=== PATIENT | female | born 1985 | race African-American/Black ===

== ENCOUNTER 2017-05-16 19:10 | Emergency (ER) | payer OTHER ==
[2017-05-16 19:19] VITALS: BP 133/81; BMI 41.8
--- NOTE | 2017-05-16 20:55 | DR.GENAD ---
HPI - PCP Primary Care Physician: nolan - HPI Comment HPI Comment: PATIENT HAVE INDWELLING BC IMPLANT IN THE AREA OF SWELLING. ARM WARM BUT NO FEVER. SWELLING INCREASING AND PAIN IS ALSO INCREASING. - Complaint/Symptoms Chief Complaint Doctors Comments: SWELLING, PAIN AND REDNESS RIGHT INNER LEFT ARM TIMES 2 TO 3 DAYS. Chief Complaint:: left upper inside arm with edema, redness, tightness, warm to touch. started on [id number]. same site where she has control implant done 5 months ago. - Nurses notes reviewed Nurses Notes Review: Yes - Source History Provided: Patient - Mode of Arrival Mode of Arrival: Ambulatory - Timing Onset of Chief Complaint: 05/14/17 Came on: Suddenly - Duration Duration: Constant Duration: Days - Severity Severity: Moderate PMH - PMH Past Medical History: Yes Past Medical History: Hypertension Past Surgical History: No - Family History History of Family Medical Conditions: No - Social History Does patient currently use any type of tobacco product: No Have you used tobacco products in the last 12 months: No Type of Tobacco Use: None Alcohol Use: None Do you use any recreational Drugs:: No Lives With: Family Lives Where: Home - infectious screening Have you traveled outside the country in the last 6 months?: No Isolation: Standard ROS - Review of Systems Constitutional: No Symptoms Reported. negative: Chills, Fever Eyes: No Symptoms Reported. negative: Eye Pain, Discharge ENTM: No Symptoms Reported. negative: Ear Pain, Nose Discharge, Nose Congestion , Throat Pain Respiratoy: No Symptoms Reported. negative: Productive Cough, Non-Productive Cough, Short of Breath, Wheezing Cardiovascular: No Symptoms Reported (ARM.), Edema. negative: Chest Pain Gastrointestinal/Abdominal: No Symptoms Reported Genitourinary: No Symptoms Reported Neurological: No Symptoms Reported Musculoskeletal: Left, Shoulder Integumentary: Change in Color Hematologic/Lymphatic: No Symptoms Reported Endocrine: No Symptoms Reported All Other Systems: Reviewed and Negative PE - Vital Signs Vitals: Temperature 98.2 F Pulse Rate 80 Respiratory Rate 16 Blood Pressure 133/81 O2 Sat by Pulse Oximetry 100 - General Limitations: No Limitations General Appearance: Alert - Head Head Exam: Normal Inspection - Eyes Eye exam: Normal Appearance - ENT ENT Exam: Normal External Ear Exam External Ear Exam: Normal External Inspection TM/Canal Exam: Bilateral Normal Nose Exam: Normal Nose Exam Mouth Exam: Normal Inspection Throat Exam: Normal Inspection - Neck Neck Exam: Trachea Midline - Chest Chest Inspection: Symmetric Chest Wall Rise - Respiratory Respiratory Exam: Normal Lung Sounds Bilat Respiratory Exam: Bilateral Clear to Auscultation - Cardiovascular Cardiovascular Exam: Regular Rate, Normal Rhythm, Normal Heart Sounds - Abdominal Exam Abdominal Exam: Normal Bowel Sounds, Soft. negative: Tenderness - Extremities Extremities Exam: Tenderness - Back Back Exam: Normal Inspection - Neurologic Neurological Exam: Alert, Oriented X3 - Psychiatric Psychiatric Exam: Normal Affect, Normal Mood - Skin Skin Exam: Erythema MDM - Additional Information Additional Information Obtained From: Family - Differential Diagnosis Differential Diagnosis: CELLULITIS LT ARM. Course - Treatment Treatment: SEE ORDERS. IV MED FOR PAIN IN ED. CT WITH CONTRAST DONE. NO ABSCESS. - Reevaluation 1st: Improved - Education/Counseling Education/Counseling: Patient, Family, Education Educated On: Treatment, Diagnosis, Needs for Follow Up ROR - Labs Reviewed Laboratory Results Reviewed?: Yes Result Diagrams: 05/16/17 21:25 05/16/17 21:25 Laboratory: WBC 6.2 X10^3/uL (3.6-10.0) 05/16/17 21:25 RBC 5.28 X10^6/uL (3.5-5.4) 05/16/17 21:25 Hgb 11.9 g/dL (12.0-16.0) L 05/16/17 21:25 Hct 37.0 % (36.0-47.0) 05/16/17 21:25 MCV 70.1 fL (80.0-100.0) L 05/16/17 21:25 MCH 22.4 pg (27.0-34.0) L 05/16/17 21:25 MCHC 32.0 g/dL (33.0-35.0) L 05/16/17 21:25 RDW 19.1 % (11.6-16.5) H 05/16/17:25 Plt Count 205 X10^3/uL (150.0-450.0) 05/16/17 21:25 Plt Count Comment Adequate (ADEQUATE) 05/16/17 21:25 MPV 8.9 fL (7.4-11.0) 05/16/17 21:25 Neut % 56.9 % (42.0-75.0) 05/16/17 21:25 Lymph % 34.2 % (21.0-51.0) 05/16/17 21:25 Grundy % 5.7 % (0.0-13.0) 05/16/17 21:25 Eos % 2.6 % (0.9-2.9) 05/16/17 21:25 Baso % 0.6 % (0.2-1.0) 05/16/17 21:25 Neut # 3.5 x10^3/uL (2.2-4.8) 05/16/17 21:25 Lymph # 2.1 X10^3/uL (1.3-2.9) 05/16/17 21:25 Grundy # 0.4 x10^3/uL (0.3-0.8) 05/16/17 21:25 Eos # 0.2 x10^3/uL (0.0-0.2) 05/16/17 21:25 Baso # 0.0 X10^3/uL (0.0-0.1) 05/16/17 21:25 Absolute Nucleated RBC 0.1 /100WBC 05/16/17 21:25 Plt Morphology Comment Normal (NORMAL) 05/16/17 21:25 RBC Morphology Abnormal (NORMAL) A 05/16/17 21:25 Hypochromasia 1+ A 05/16/17 21:25 Anisocytosis 1+ A 05/16/17 21:25 Microcytosis 1+ A 05/16/17 21:25 Sodium 140 mmol/L (136-145) 05/16/17 21:25 Corrected Sodium TNP 05/16/17 21:25 Potassium 3.8 mmol/L (3.5-5.1) 05/16/17 21:25 Chloride 106 mmol/L (98-107) 05/16/17 21:25 Carbon Dioxide 25.6 mmol/L (21-32) 05/16/17 21:25 BUN 14 mg/dL (7-18) 05/16/17 21:25 Creatinine 0.89 mg/dL (0.55-1.02) 05/16/17 21:25 Est GFR (MDRD) Af Amer > 60 (>60) 05/16/17 21:25 Est GFR (MDRD) Non-Af > 60 (>60) 05/16/17 21:25 Glucose 92 mg/dL (65-99) 05/16/17 21:25 Calcium 8.6 mg/dL (8.5-10.1) 05/16/17 21:25 Corrected Calcium TNP 05/16/17 21:25 Total Bilirubin 0.30 mg/dL (0.2-1.0) 05/16/17 21:25 AST 18 Units/L (15-37) 05/16/17 21:25 ALT 23 Units/L (12-78) 05/16/17 21:25 Alkaline Phosphatase 65 Units/L (46-116) 05/16/17 21:25 C-Reactive Protein 29.70 mg/L (0-3.0) H 05/16/17 21:25 Total Protein 7.6 g/dL (6.4-8.2) 05/16/17 21:25 Albumin 3.5 g/dL (3.4-5.0) 05/16/17 21:25 Globulin 4.1 g/dL (2.5-4.5) 05/16/17 21:25 Albumin/Globulin Ratio 0.9 Ratio (1.1-2.1) L 05/16/17 21:25 - XRAY XRAY Interpreted by: Radiologist XRAY Findings: REPORT DISCUSS WITH PATIENT. - Diagnosis Discharge Problem: Cellulitis of left upper arm - Discharge Plan Disposition: 01 HOME, SELF-CARE Condition: Stable Prescriptions: Clindamycin HCl 300 mg PO Q6H #40 cap Ibuprofen [MOTRIN TAB 800 MG *] 800 mg PO Q8H PRN #20 tab PRN Reason: Pain/Inflammation Sulfamethoxazole-Trimethoprim [BACTRIM DS TAB 800/160 MG *] 1 tab PO BID #20 tab Tramadol HCl [ULTRAM 50 MG *] 50 mg PO Q8H PRN #15 tab PRN Reason: Pain - Follow ups/Referrals Follow ups/Referrals: [facility],None [Primary Care Provider] - 05/17/17 - Instructions Instructions: Cellulitis, Adult, [id number] Additional Instructions: RETURN TO ED IF WORSE. SEE YOUR MIGRATION SPECIALIST DR IN AM.
[2017-05-16] MEDS ORDERED: TORADOL 30 MG VIAL IVP ONE (21:30)
[2017-05-16] MEDS ORDERED: TORADOL 30 MG VIAL ONE (21:30)
[2017-05-16] MEDS ORDERED: NS 100 ML IV 100 ML IV ONE (21:40)
[2017-05-16 22:01] LABS: BASOPHILS % (AUTO) 0.6 % (0.2-1.0); EOSINOPHILS # (AUTO) 0.2 x10^3/uL (0.0-0.2); EOSINOPHILS % (AUTO) 2.6 % (0.9-2.9); HEMOGLOBIN 11.9 g/dL (12.0-16.0); LYMPHOCYTES # (AUTO) 2.1 X10^3/uL (1.3-2.9); LYMPHOCYTES % (AUTO) 34.2 % (21.0-51.0); MEAN CORPUSCULAR HEMOGLOBIN 22.4 pg (27.0-34.0); MEAN CORPUSCULAR VOLUME 70.1 fL (80.0-100.0); MEAN PLATELET VOLUME 8.9 fL (7.4-11.0); MONOCYTES # (AUTO) 0.4 x10^3/uL (0.3-0.8); MONOCYTES % (AUTO) 5.7 % (0.0-13.0); NEUTROPHILS # (AUTO) 3.5 x10^3/uL (2.2-4.8); NEUTROPHILS % (AUTO) 56.9 % (42.0-75.0); PLATELET COUNT 205 X10^3/uL (150.0-450.0); RED BLOOD COUNT 5.28 X10^6/uL (3.5-5.4); RED CELL DISTRIBUTION WIDTH 19.1 % (11.6-16.5); WHITE BLOOD COUNT 6.2 X10^3/uL (3.6-10.0)
[2017-05-16 22:09] LABS: ANISOCYTOSIS 1+; HYPOCHROMASIA 1+; MICROCYTOSIS 1+; PLATELET MORPHOLOGY COMMENT NORMAL (NORMAL)
[2017-05-16 22:15] LABS: ALANINE AMINOTRANSFERASE 23 Units/L (12-78); ALBUMIN 3.5 g/dL (3.4-5.0); ALKALINE PHOSPHATASE 65 Units/L (46-116); ASPARTATE AMINO TRANSFERASE 18 Units/L (15-37); BLOOD UREA NITROGEN 14 mg/dL (7-18); CALCIUM 8.6 mg/dL (8.5-10.1); CARBON DIOXIDE 25.6 mmol/L (21-32); CHLORIDE 106 mmol/L (98-107); CREATININE 0.89 mg/dL (0.55-1.02); SODIUM 140 mmol/L (136-145); TOTAL PROTEIN 7.6 g/dL (6.4-8.2); eGFR BLACK RACES > 60 (>60); eGFR NON BLACK RACES > 60 (>60)
--- NOTE | 2017-05-16 22:39 | CT ---
CT left upper arm with contrast Indication: Edema, redness of the right upper extremity Technique: Helical CT images of the left upper arm were obtained with IV contrast. Reformatted images in the coronal and sagittal planes were also generated for review. Comparison: None Findings: The imaged osseous structures and joint spaces of the left upper arm are intact. No acute f racture, malalignment or bony destruction is identified to suggest osteomyelitis. There is moderate subcutaneous edema and skin thickening along the anterior lateral aspect of the upp er arm. Soft tissue inflammatory changes extend to the level of the superficial fascia. No soft tissu e gas or discrete drainable fluid collection to suggest abscess is identified. There is a 2.7 cm line ar radiopaque density within the superficial subcutaneous soft tissues of the anterior lateral upper arm. No significant inflammatory stranding of the deep fascia planes is appreciated. No left axillary lymphadenopathy is identified. Impression: Moderate soft tissue inflammatory changes involving the anterior lateral aspect of left upper arm, gallagher ggestive for cellulitis. No drainable abscess or evidence of osteomyelitis or necrotizing infection. Linear 2.7 cm radiopaque density within the superficial subcutaneous soft tissues of the anterior lat eral upper arm. Clinical correlation for foreign body is necessary. Reported By:
[2017-05-16] MEDS ORDERED: BACTRIM DS TAB PO ONE ×2 (22:45→22:49)
[2017-05-16] MEDS ORDERED: CLEOCIN PO ONE (22:46)
[2017-05-16] MEDS ORDERED: CLEOCIN ONE (22:49)
[2017-05-16] MEDS ORDERED: ULTRAM PO ONE (22:51)
[2017-05-16] MEDS ORDERED: ULTRAM ONE (22:52)
[2017-05-16] MEDS ORDERED: ZyrTEC TAB 10 MG ONE (23:05)
[2017-05-16] MEDS ORDERED: AMOXIL CAP 500 MG PO ONE (23:05)
== END 2017-05-16 23:06 | disposition home or self-care (01) ==
LOC: ER 19:24
DX: L03.114 Cellulitis of left upper limb (principal)
CPT/HCPCS: 36415; 73201; 80053; 85025; 86140; 87040; 96365; 99283; A4222; J1885